=== PATIENT | male | born 1975 | race American Indian/Alaskan Native ===

== ENCOUNTER 2016-08-05 16:34 | Emergency (ER) | payer OTHER ==
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
[2016-08-05] MEDS ORDERED: NORCO 5/325 PO ONE (19:47)
[2016-08-05] MEDS ORDERED: TORADOL IM ONE (19:47)
[2016-08-05] MEDS ORDERED: FLEXERIL PO ONE (19:47)
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
[2016-08-05] MEDS ORDERED: ZOFRAN ODT PO ONE (20:01)
[2016-08-05 22:29] VITALS: BP 126/75
--- NOTE | 2016-08-05 22:53 | XRay Report ---
FINAL REPORT EXAM: XR KNEE 3V RT HISTORY: right knee pain COMPARISONS: None. FINDINGS: Three views right knee Alignment is anatomic and joint spaces are preserved. No fracture or effusion. Enthesopathy involving the superior pole of the patella. IMPRESSION: No fracture or effusion. Quadriceps insertional enthesopathy may predispose to tendinitis.
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
== END 2016-08-05 22:28 | disposition home or self-care (01) ==
LOC: ED 16:34
DX: V58.5XXA Driver of pick-up truck or van injured in noncollision transport accident in traffic accident, initial encounter (principal); Y92.413 State road as the place of occurrence of the external cause; Y93.89 Activity, other specified; Y99.8 Other external cause status
CPT/HCPCS: 29505; 29515; 71020; 73562; 73610; 93005; 93010; 96372; 99284; J1885; Q0162